=== PATIENT | male | born 1970 | race Caucasian/White ===

== ENCOUNTER 2019-01-12 05:02 | Emergency (ER) | payer BC, OTHER ==
[2019-01-12] MEDS ORDERED: Diltiazem IV push/loading dose 5 MG/ML 5 ML vial (25 mg) IV SLOW PU ONE (05:24)
--- NOTE | 2019-01-12 05:34 | ED ---
Palpitations / Dysrhythmia - HPI Summary HPI Summary: The patient is a 48 y/o M presenting to [facility] with a chief complaint of sudden onset fast heart palpitations starting at 0230 this morning. He reports that he went to bed at 0030 but suddenly woke up two hours later with palpitations. He thought that he was having a panic attack so he tried to remain calm and control his breathing for an hour, but the tachycardia continued. He denies CP and SOB. He hasn't had theses symptoms before. Hx of HTN. No substance use, former smoker, moderate EtOH. - History of Current Complaint Chief Complaint: EDDysrhythmPalp Time Seen by Provider: 01/12/19 05:19 Hx Obtained From: Patient Onset/Duration: Sudden Onset, Lasting Hours, Still Present Severity Initially: Mild Severity Currently: Moderate Character: Fast Aggravating: Nothing Alleviating: Nothing - tried to control breathing to no relief - Allergy/Home Medications Allergies/Adverse Reactions: Allergies Allergy/AdvReac Type Severity Reaction Status Date / Time MS Penicillins [Penicillins] Allergy Severe Hives Verified 02/02/13 10:59 Home Medications: Home Medications Benazepril/Hydrochlorothiazide [Benazepril HCl/Hydrochlor 20-12.5 mg-] 0.5 tab PO DAILY 01/12/19 [History Confirmed 01/12/19] PMH/Surg Hx/FS Hx/Imm Hx Endocrine/Hematology History: Denies: Hx Diabetes, Hx Thyroid Disease Cardiovascular History: Reports: Hx Hypertension - Borderline Respiratory History: Denies: Hx Asthma, Hx Chronic Obstructive Pulmonary Disease (COPD) GI History: Denies: Hx Ulcer - Surgical History Surgery Procedure, Year, and Place: tonsils Infectious Disease History: No Infectious Disease History: Reports: History Other Infectious Disease - Lyme Disease Denies: Hx Hepatitis, Hx Human Immunodeficiency Virus (HIV), Traveled Outside the [place] in Last 30 Days - Family History Known Family History: Positive: Hypertension - Social History Alcohol Use: Daily Alcohol Amount: 1-3 beers Substance Use Type: Reports: None Hx Tobacco Use: Yes Smoking Status (MU): Former Smoker Type: Cigarettes Amount Used/How Often: 1/2 -1 PPD Length of Time of Smoking/Using Tobacco: 20 years Have You Smoked in the Last Year: Yes Review of Systems Positive: Palpitations. Negative: Chest Pain Negative: Shortness Of Breath All Other Systems Reviewed And Are Negative: Yes Physical Exam - Summary Physical Exam Summary: Appearance: Well appearing, no pain distress Skin: warm, dry, reflects adequate perfusion Head/face: normal Eyes: EOMI, TISHA ENT: normal Neck: supple, non-tender Respiratory: CTA, breath sounds present Cardiovascular: fast irregularly irregular heart rate, pulses symmetrical Abdomen: non-tender, soft Musculoskeletal: normal, strength/ROM intact Neuro: normal, sensory motor intact, A&Ox3 Triage Information Reviewed: Yes Vital Signs On Initial Exam: Initial Vitals Temp Pulse Resp BP Pulse Ox 97.7 F 96 18 154/116 98 01/12/19 05:08 01/12/19 05:08 01/12/19 05:08 01/12/19 05:08 01/12/19 05:08 Vital Signs Reviewed: Yes Diagnostics - Vital Signs Vital Signs Temp Pulse Resp BP Pulse Ox 01/12/19 05:21 87 11 146/102 97 01/12/19 05:20 112 7 99 01/12/19 05:08 97.7 F 96 18 154/116 98 - Laboratory Result Diagrams: 01/12/19 05:28 01/12/19 05:28 Lab Statement: Any lab studies that have been ordered have been reviewed, and results considered in the medical decision making process. - Radiology CXR Radiology Interpretation Completed By: Radiologist Summary of Radiographic Findings: No acute process. ED physician has reviewed this report. - EKG 0512 Cardiac Rate: NL - 125 BPM EKG Rhythm: Atrial Fibrillation Summary of EKG Findings: No ST elevations Course/Dx - Course Assessment/Plan: The patient is a 48 y/o M presenting to [facility] with a chief complaint of sudden onset fast heart palpitations starting at 0230 this morning. He denies SOB and CP. Upon physical exam, the patient exhibits fast irregularly irregular heart rate. In the ED course, the patient was administered potassium chloride and Diltiazem. Blood work obtained. EKG reveals A fib at 125 BPM. CXR reveals no acute process. He is diagnosed with afib with ventricular rate. The patient is a sign-out to MARYANN Horne, from Dr. Marco A Sousa MD, at change of shift at 0700 pending further workup and disposition. - Diagnoses Provider Diagnoses: Atrial fibrillation with normal ventricular rate Discharge - Sign-Out/Discharge Documenting (check all that apply): Sign-Out Patient Signing out patient TO: China Morales - Patient is a sign-out to MARYANN Horne, pending further workup and disposition. Patient Received Moderate/Deep Sedation with Procedure: No - Discharge Plan Referrals: Anival Sheikh MD [Primary Care Provider] - - Attestation Statements Document Initiated by Scribe: Yes Documenting Scribe: Tracie Joyner Provider For Whom Scribe is Documenting (Include Credential): Dr. Marco A Sousa MD Scribe Attestation: Tracie Bennett scribed for Dr. Marco A Sousa MD on 01/12/19 at 0656. Status of Scribe Document: Ready
[2019-01-12 05:50] LABS: ABS Eosinophils 0.1 10^3/ul (0-0.6); ABS Lymphocytes 1.6 10^3/ul (1.0-4.8); ABS Monocytes 0.6 10^3/ul (0-0.8); ABS Neutrophils 3.6 10^3/ul (1.5-7.7); Eosinophil % 2.2 %; Hematocrit 43 % (42-52); Hemoglobin 15.2 g/dL (14.0-18.0); Lymphocyte % 27.2 %; Mean Corpuscular HGB Conc 36 g/dL (31-36); Mean Corpuscular Hemoglobin 31 pg (27-31); Mean Corpuscular Volume 87 fL (80-94); Mean Platelet Volume 6.7 fL (7.4-10.4); Nucleated Red Blood Cells % 0.2; Platelet Count 306 10^3/uL (150-450); Red Blood Count 4.88 10^6 /uL (4.18-5.48); Red Cell Distribution Width 13 % (10.5-15)
[2019-01-12 05:55] LABS: Activated Partial Thrombo Time 32.2 seconds (26.0-38.0); INR 0.93 (0.82-1.09)
[2019-01-12 06:14] LABS: Albumin 4.4 g/dL (3.2-5.2); Albumin/Globulin Ratio 1.9 (1-3); BUN/Creatinine Ratio 13.1 (8-20); Calcium 9.8 mg/dL (8.6-10.3); EGFR Non-African American 58.7 (>60); Globulin 2.3 g/dL (2-4); Potassium 3.5 mmol/L (3.5-5.0); Total Bilirubin 2.3 mg/dL (0.2-1.0); Total Protein 6.7 g/dL (6.4-8.9)
[2019-01-12] MEDS ORDERED: Potassium Chlor TAB* 20 MEQ TAB.ER PO ONE (06:19)
[2019-01-12 06:23] LABS: Magnesium 2.1 mg/dL (1.9-2.7)
[2019-01-12 10:00] LABS: HDL Cholesterol 56.6 mg/dL
--- NOTE | 2019-01-12 11:28 | ED ---
Progress - Progress Note Progress Note: Receiving sign out from Dr. Sousa - pt dx'd w/ a. fib, HR 120-140's - sx and rate improved with cardizem 20mg IV push. HPI as follows: The patient is a 48 y/o M presenting to [facility] with a chief complaint of sudden onset fast heart palpitations starting at 0230 this morning. He reports that he went to bed at 0030 but suddenly woke up two hours later with palpitations. He thought that he was having a panic attack so he tried to remain calm and control his breathing for an hour, but the tachycardia continued. Also reports this felt different than a panic attack (ie. didn't have finger tingling, etc). He denies CP, SOB, dizziness, fatigue - in fact he feels like he should be tired from lack of sleep however feels quite alert. He hasn't had theses symptoms before. Hx of HTN - well controlled on benazapril/HCTZ. Admits to a lot of stress past 3 months. Self-employed and works 6 days a week. Financial stress H/o anxiety depression - was on SSRI in past - d/c'd through PCP a while ago ( no abrupt withdrawal) Denies SI/HI ETOH use - h/o abuse 8-10/day (beer, shots, etc). Quit drinking in Jul 2018 but started back up 1 month ago however reports he limits himself to 1-2 beers a night. Admits last night he had 4 beers which is more than usual. Former smoker Denies illicit drug use Does consume 1-3 coffees a day "I eat a lot of junk food" No cardiovascular exercise PE GEN: A&O x 3, lying comfortably on stretcher HEENT: mucosa moist CARDIAC: S1/S2, IRR PULM: breathing easily INTEG: warm, dry - no sweating EXTREM: no edema, well perfused AB: soft, NT NEURO: CN II-XII grossly intact, no tremor DURAN: moving without difficulty, strength intact and equal B/L PSYCH: appears calm and cooperative, clear thoughts, good insight; Denies SI, hallucinations ECG: #1 a. fib, HR 125 #2 a. fib, HR 70 #3 NSR, HR 60 Assessment: #1. suspect new onset A fib - Dr. Hendricks to see the pt who converted and rate now in 60's. Feels better. #2. Anxiety/depression -no SI/HI #3. ETOH abuse PLAN: *1. Discussed changing meds with Dr. Hendricks and pt - stop benazapril/HCTZ and start cardizem plus potassium until follow-up with PCP this week. STart ASA 81mg. Pt will also call Dr. Hendricks's office Monday to schedule echocardiogram. If worse in meantime, return to ED. Pt agrees w plan. *2. Discussed lifestyle changes (ie. ETOHcaffeine reduction/ cessation, better eating, stress reduction, etc) - pt is open minded and willing to address changes - h/o ETOH cessation on his own in the past w/ success. *Refrained from psych eval today however pt aware of acute services if needed *Also discussed may be beneficial to restart SSRI, counseling - will discuss w/ PCP this week *3. Conversation regarding ETOH withdrawal - WAM score 0 today and he has no concern of abrupt withdrawal as he stopped in the past w/o sx and doesn't feel any withdrawal sx over the past 12 hours. Advised to return if any danger s/sx present - pt agrees w/ plan Dispo: home Condition: stable Course/Dx - Diagnoses Provider Diagnoses: Atrial fibrillation with normal ventricular rate Discharge - Sign-Out/Discharge Documenting (check all that apply): Patient Departure, Receiving Sign-Out Signing out patient TO: Marco A Sousa Receiving patient FROM: Marco A Sousa Patient Received Moderate/Deep Sedation with Procedure: No - Discharge Plan Condition: Stable Disposition: HOME Prescriptions: dilTIAZem HCl [Cardizem LA] 120 mg PO DAILY #14 tab.er.24h Potassium Chlor TAB* [Potassium Chlor TAB 20 MEQ*] 20 meq PO DAILY #14 tab.er Patient Education Materials: A-fib (Atrial Fibrillation) (ED), Stress (ED), Alcohol Withdrawal (ED) Referrals: [facility] [Outside] Additional Instructions: For atrial fibrillation: *Stop benazapril/HCTZ *Start cardizem, potassium and aspirin 81mg daily until follow-up with PCP this week. Call Monday to schedule appointment. Contact information for [facility] here. *Call Dr. Hendricks's office Monday to schedule echocardiogram. For stress: *Discussed lifestyle changes (ie. avoiding alcohol, reducing caffeine, stay hydrated, better eating, stress reduction, etc) - see handout for additional information and discuss wit PCP at follow-up *Discussed it may be beneficial to restart SSRI (ie. lexapro, etc) - discuss w/ PCP this week *If you feel like harming yourself or others, call 911 and/or return to the ED You do not appear to have signs of alcohol withdrawal here today however should you develop symptoms, return to ED. See handouts for symptoms. - Billing Disposition and Condition Condition: STABLE Disposition: Home
[2019-01-12 12:21] VITALS: BP 123/79
--- NOTE | 2019-01-12 14:05 | CONS ---
CC: Iker Hendricks MD; [facility] Internal Medicine ED CONSULTATION NOTE: DATE OF CONSULT: 01/12/19 CONSULTING PROVIDER: MARYANN Horne. REASON FOR CONSULTATION: AFib. HISTORY OF PRESENT ILLNESS: This is a very pleasant 48-year-old gentleman with a history of hypertension, depression, and alcohol abuse. He was in his usual state of health, drinking 2 to 3 beers at night over the last month until last night when he went out and had 4 beers. He said he went to bed at around 12:30 p.m. He woke at 2:20 a.m., feeling that his heart was fluttering, going fast, irregular, and felt uncomfortable. He thought it was a panic attack; however, in the past, his panic attacks had been associated with an increased heart rate that is regular. Denied syncope or near syncope. No chest discomfort. Because of the symptoms, he decided to wait for an hour or 2 and do some breathing exercises, but his symptoms persisted and when he lied down, he was uncomfortable with irregular heartbeat. Because of his symptoms, he came to the emergency room. He was found to be in AFib with a rapid ventricular response. He was given IV diltiazem with some slowing of his heart rate and he spontaneously converted at about 8 o'clock. He started to fall asleep about 8 o 'clock and then was aware of a sensation of converting to his normal rhythm, which was back to normal. He denies syncope or near syncope. He has no chest pain. He says last April, he developed some discomfort in his left shoulder and left arm, which was positional and not associated with any other symptoms. He denies any previous heart issues or rheumatic fever. He does have a history of a murmur as a child. Of note, he said that he has had problems with alcohol and tobacco use and depression. He said he has been on SSRIs in the past including Lexapro. He said that he was drinking up to 9 beers a day in the past and felt lightheaded and dizzy and felt better with stopping it. He blames some of his symptoms on the Lexapro. He said he quit smoking 5 months ago after smoking a pack per day for 25 years. He quit alcohol 7 months ago, but restarted it 1 month ago and has gradually built up to 1 to 3 beers per night and had 4 beers last night for the first time. He has a history of depression, anxiety, and hypertension. He denies diabetes. He has a history of tobacco use. He denies asthma or emphysema. He was drinking 3 cups of coffee a day until he stopped smoking, then he felt too anxious with the caffeine and is down to 1 cup a day. Of note, he weaned himself off his citalopram back in May and June of last year. He does report he is under a great deal of stress. 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 He says he is under financial pressure. He does have a girlfriend. He does not spend so much time with his child as he would like. He does not exercise regularly, but he does all physical labor at work. PSH: He denies any surgeries. PMH HTN, Depresion, Anxiety, Panic disorder, tobacco use until recently, alcohol abuse. MEDICATIONS: Include benazepril/hydrochlorothiazide 20/12.5 half a tablet daily. As an inpatient: 1. IV diltiazem 20mg. 2. Potassium 20 mEq. ALLERGIES: I PENICILLIN. FAMILY HISTORY: Includes a father who of colon cancer at 70, mother is 73 and alive. He has no siblings. SOCIAL HISTORY: He is and has 1 child. 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 REVIEW OF SYSTEMS: Review of systems x10 was negative, except as above. He denied homicidal or suicidal ideation. He does state he is unhappy with the way his life is going. PHYSICAL EXAMINATION: He is a well-developed, well-nourished gentleman, in no apparent distress. Blood pressure 134/85, pulse 62 and regular. No significant JVD. Carotids are 2+ without bruits. No cervical adenopathy. No thyromegaly. Atraumatic, normocephalic. Cardiac Exam: S1, S2 with a soft 1/6 to 2/6 holosystolic murmur heard at the left lower sternal border, which seemed to increase with inspiration. Chest was clear. No CVAT. Abdomen: Bowel sounds present, nontender. Femoral pulses are intact with bruits. Distal pulses intact with no edema. Motor strength 5/5 bilaterally. Deep tendon reflexes 2/4. Alert and oriented x3. DIAGNOSTIC STUDIES/LAB DATA: Labs include a fairly unremarkable CBC. Sodium 139, potassium 3.5, BUN is 17, creatinine of 1.3; it was 1.2 in February 2017. TSH was normal. BNP was normal at 37. Troponin was 0. His EKG from 6:45 revealed AFib with PVC, counterclockwise rotation, and controlled ventricular response. EKG from 9:03 revealed sinus rhythm at 60 with counterclockwise rotation, no acute changes. His EKG from 01/12/19 at 5: 12 revealed AFib with a rapid ventricular response, counterclockwise rotation, [address] depressions inferiorly and anteriorly. IMPRESSION: My impression is that Mr. Moore presents with his first diagnosed presentation of atrial fibrillation and is converted after rate control. Confounding factors could be alcohol abuse, anxiety, and depression. I did discuss this at length with the patient and with MARYANN Horne. For the time being, I recommend the followin. I suggested that he avoid caffeine and alcohol, which could increase his risk for recurrent arrhythmias. 2. I suggested we supplement his potassium to try to maintain it over 4. 3. I would suggest switching from benazepril to diltiazem 120 mg CD to try to control his blood pressure and perhaps afford some rate control if he has recurrent atrial fibrillation. 4. We will have to watch for bradycardia and hypertension. 5. I discussed with him my concerns about his alcohol use and potential for morbidity, mortality, and the potential for alcohol withdrawal if he stops abruptly. We will discuss possible detox with MARYANN Horne. 6. I strongly suggested a more constructive approach to his lifestyle including improving his diet, decreasing alcohol and caffeine, and treating his depression and anxiety. He is somewhat reluctant to restart Lexapro, but I suggest he followup with his primary care doctor about options. 7. I also suggest that he gently increase regular amount of exercise and try to help improve his physical and emotional well-being once his cardiac workup is completed. 8. He is to have an echocardiogram as an outpatient to evaluate his murmur we will consider an exercise test at some point given his nonspecific EKG changes. 9. I would check a lipid profile. 10. He understands the potential for recurrent atrial fibrillation despite improved lifestyle and we discussed options for treatment including antiarrhythmics and/or referral for ablation. 11. His CHADS2-VASc score is 1. He understands the risk for cardioembolic events given his relatively low score, his alcohol use, and his profession, which increases the risk of trauma/bleeding, I suggested aspirin 81 mg for now. He usually follows with Dr. Sheikh, but he is planning on having a new provider since Dr. Sheikh has less primary care practice. TIME SPENT: Over half of the 90 minutes spent with the patient, was in discussion, [id number] and coordination of care. [id number]/[facility] #: [id number] DANK
== END 2019-01-12 12:19 | disposition home or self-care (01) ==
LOC: ED 05:02
DX: I48.91 Unspecified atrial fibrillation (principal); I10 Essential (primary) hypertension; Z88.0 Allergy status to penicillin; Z87.891 Personal history of nicotine dependence
CPT/HCPCS: 36415; 71045; 80053; 80061; 82550; 83605; 83735; 83880; 84443; 84484; 85025; 85610; 85730; 93005; 96374; 99283; A9270-GY

== ENCOUNTER 2019-01-16 00:11 | Emergency (ER) | payer BC ==
--- NOTE | 2019-01-16 00:51 | ED ---
Palpitations / Dysrhythmia - HPI Summary HPI Summary: The patient is a 48 year old M presenting to [facility] with a chief complaint of dysrhythmia. The pt reports that he felt irregular heart palpitations after eating dinner and watching tv. The pt became worried as it felt the same as an episode he had on Monday01/11/19. He reports that he was SOB due to anxiety from the palpitations but denies any chest pain. He states that the feeling has decreased since his arrival to the ED and that his chest feels tight. He took ASA prior to arrival at the ED. He reports starting a new medication for HTN since 01/11/19. The pt was diagnosed with AFIB on 01/11/19. The pt's blood pressure was 155/99 and his heart rate was 62 BPM. - History of Current Complaint Chief Complaint: EDDysrhythmPalp Time Seen by Provider: 01/16/19 00:42 Hx Obtained From: Patient Onset/Duration: Sudden Onset - watching TV after dinner tonight 01/15/19., Lasting Hours Timing: Constant Severity Initially: Severe Severity Currently: None Character: Fast, Irregular Aggravating: Nothing Alleviating: Rest Associated Signs & Symptoms: Chest Pain - Negative, Shortness of Breath Related History: Similar Episode/Dx as - 01/11/19, diagnosed with AFIB on that date. - Allergy/Home Medications Allergies/Adverse Reactions: Allergies Allergy/AdvReac Type Severity Reaction Status Date / Time MS Penicillins [Penicillins] Allergy Severe Hives Verified 01/16/19 00:14 PMH/Surg Hx/FS Hx/Imm Hx Previously Healthy: No Endocrine/Hematology History: Denies: Hx Diabetes, Hx Thyroid Disease Cardiovascular History: Reports: Hx Hypertension - Borderline Respiratory History: Denies: Hx Asthma, Hx Chronic Obstructive Pulmonary Disease (COPD) GI History: Denies: Hx Ulcer - Surgical History Surgery Procedure, Year, and Place: tonsils Infectious Disease History: No Infectious Disease History: Reports: History Other Infectious Disease - Lyme Disease Denies: Hx Hepatitis, Hx Human Immunodeficiency Virus (HIV), Traveled Outside the [place] in Last 30 Days - Family History Known Family History: Positive: Hypertension - Social History Alcohol Use: Daily Alcohol Amount: 1-3 beers Substance Use Type: Reports: None Hx Tobacco Use: Yes Smoking Status (MU): Former Smoker Type: Cigarettes Amount Used/How Often: 1/2 -1 PPD Length of Time of Smoking/Using Tobacco: 20 years Have You Smoked in the Last Year: Yes Review of Systems Positive: Palpitations. Negative: Chest Pain Positive: Shortness Of Breath All Other Systems Reviewed And Are Negative: Yes Physical Exam - Summary Physical Exam Summary: Appearance: Well-appearing, Well-nourished, lying in bed comfortably Skin: Warm, dry, no obvious rash Eyes: sclera anicteric, no conjunctival pallor ENT: mucous membranes moist, pharynx appears normal Neck: Supple, nontender Respiratory: Clear to auscultation, no signs of respiratory distress Cardiovascular: Normal S1, S2. No murmurs. Normal distal pulses in tibial and radial bilaterally. Abdomen: Soft, nontender, normal active bowel sounds present Musculoskeletal: Normal, Strength/ROM Intact Neurological: A&Ox3, awake and alert, mentation is normal, speech is fluent and appropriate Psychiatric: affect is normal, does not appear anxious or depressed Triage Information Reviewed: Yes Vital Signs On Initial Exam: Initial Vitals Temp Pulse Resp BP Pulse Ox 99.9 F 83 18 216/100 100 01/16/19 00:13 01/16/19 00:13 01/16/19 00:13 01/16/19 00:13 01/16/19 00:13 Vital Signs Reviewed: Yes Diagnostics - Vital Signs Vital Signs Temp Pulse Resp BP Pulse Ox 01/16/19 00:13 99.9 F 83 18 216/100 100 - Laboratory Lab Statement: Any lab studies that have been ordered have been reviewed, and results considered in the medical decision making process. - EKG 0108 Cardiac Rate: NL EKG Rhythm: Sinus Rhythm ST Segment: Normal Ectopy: None Summary of EKG Findings: NSR at 77 BPM, P waves, QRS complex, and T waves are within normal limits, T waves and intervals are normal, no ischemic changes. This is a normal EKG. Course/Dx - Course Course Of Treatment: The patient is a 48 year old M presenting to [facility] with a chief complaint of dysrhythmia. The pt reports that he felt irregular heart palpitations after eating dinner and watching tv. The pt became worried as it felt the same as an episode he had on Monday01/11/19. His EKG shows NSR at 77 BPM, P waves, QRS complex, and T waves are within normal limits, T waves and intervals are normal, no ischemic changes. The pt was very anxious about his heart and all the complications of AFIB and how it can manifest/risk factors were discussed. Pt is being discharged with a new Dx of heart palpitations and anxiety. The pt was informed to continue his plan of care and to find ways to cope with his anxiety including possible medication. - Diagnoses Provider Diagnoses: Heart palpitations, Anxiety Discharge - Sign-Out/Discharge Documenting (check all that apply): Patient Departure - discharge Patient Received Moderate/Deep Sedation with Procedure: No - Discharge Plan Condition: Good Disposition: HOME Patient Education Materials: A-fib (Atrial Fibrillation) (ED), Heart Palpitations (ED), Anxiety (ED) Referrals: Anival Sheikh MD [Primary Care Provider] - Additional Instructions: Your manager recruiting will help you navigate the ins and outs of atrial fibrillation but it would be worth your while to talk to your PCP about your anxiety as there are good treatments for that as well. - Billing Disposition and Condition Condition: GOOD Disposition: Home - Attestation Statements Document Initiated by Soila: Yes Documenting Scribe: Federico Sands Provider For Whom Soila is Documenting (Include Credential): Aaron Martino MD Scribe Attestation: I, Federico Sands, terryed for Aaron Martino MD on 01/16/19 at 0514. Scribe Documentation Reviewed: Yes Provider Attestation: The documentation as recorded by the Federico leon accurately reflects the service I personally performed and the decisions made by me, Aaron Martino MD Status of Scribe Document: Viewed
[2019-01-16 01:26] VITALS: BP 124/75
== END 2019-01-16 01:26 | disposition home or self-care (01) ==
LOC: ED 00:11
DX: R00.2 Palpitations (principal); F41.9 Anxiety disorder, unspecified; R06.02 Shortness of breath; I10 Essential (primary) hypertension; Z88.0 Allergy status to penicillin; Z87.891 Personal history of nicotine dependence
CPT/HCPCS: 93005; 99282

== ENCOUNTER 2019-06-06 15:08 | Emergency (ER) | payer BC, MEDICAID, OTHER ==
--- OUTSIDE RECORDS SUMMARY | 2019-06-06 15:36 | XMS REPORT | Continuity of Care Document ---
:1970 External Reference #:[id number] Author Name Karl Staples, OD Address [address] [place] [address] Care Team Providers Name Role Phone Aguilar POPE, Anival Internal Care Team Information Sheetmetal Trades Worker [phone] Medicine Problems Active Problems Provider Date Hypermetropia Karl Burroughs O.D. Onset: 03/14/2014 Visual disturbance Karl Burroughs O.D. Onset: 03/14/2014 Blepharitis Karl Burroughs O.D. Onset: 03/14/2014 Social History Type Date Description Comments Sex Unknown ETOH Use Occasionally consumes alcohol Tobacco Use Start: Unknown End: Unknown Patient is a former smoker Smoking Status Reviewed: 04/19/19 Patient is a former smoker Allergies, Adverse Reactions, Alerts Active Allergies Reaction Severity Comments Date Penicillins 03/14/2014 Seasonal 03/14/2014 Medications Active Medications SIG Qnty Indications Ordering Date Provider Lorazepam Unknown 0.5mg Tablets Hydrochlorothiazide Take 1 Tablet Unknown 25mg Tablets By Mouth Every Day Cartia XT Mauser, 120mg Caps ER 24HR MD Iker Immunizations Description No Information Available Vital Signs Date Vital Result Comment 04/19/2019 2:13pm Intraocular Pressure Right Eye 15 mmHg Intraocular Pressure Left Eye 15 mmHg 03/14/2014 2:00pm Intraocular Pressure Right Eye 14 mmHg Intraocular Pressure Left Eye 14 mmHg Results Description No Information Available Procedures Date Code Description Status 04/19/2019 40337 Refraction Completed 04/19/2019 59156 Eye Exam New Comprehensive Completed Medical Devices Description No Information Available Encounters Description No Information Available Assessments Date Code Description Provider 04/19/2019 H52.03 Hypermetropia, bilateral Karl Staples, OD 04/19/2019 H04.123 Dry eye syndrome of bilateral lacrimal glands Karl Begumon, OD Plan of Treatment 04/19/2019 - Karl Begumon, ODH52.03 Hypermetropia, obyuaezjdL30.123 Dry eye syndrome of bilateral lacrimal glandsFollow up:1-2 years full, sooner PRN Functional Status Description No Information Available Mental Status Description No Information Available Referrals Description No Information Available
--- OUTSIDE RECORDS SUMMARY | 2019-06-06 15:36 | XMS REPORT | Continuity of Care Document ---
:1970 External Reference #:[id number] Author Name Rosa Yadav NP (transmitted by agent of provider Laney Ware) Address [address] [place] [address] Care Team Providers Name Role Phone Denita Bello, PhD. - Clinical Care Team Information Chemical Plant Operator Lissa Gillis M.D. - Family Medicine Care Team Information Chemical Plant Operator Problems Active Problems Provider Date Benign essential hypertension Breann Broussard, N.P. Onset: 02/05/2014 Mixed hyperlipidemia Breann Broussard, N.P. Onset: 02/05/2014 Alcohol abuse Breann Broussard, N.P. Onset: 02/05/2014 Tobacco user Breann Broussard, N.P. Onset: 02/05/2014 Moderate recurrent major depression Anival Sheikh M.D.,FACP Onset: 11/16 Family history of malignant neoplasm Anival Sheikh M.D.,FACP Onset: of gastrointestinal tract Social History Type Date Description Comments Sex Unknown Tobacco Use Start: Unknown End: Former Cigarette Smoker Unknown 1 Pack Daily ETOH Use Has consumed alcohol in Last drink December 2018 the past Recreational Drug Use Denies Drug Use Tobacco Use Start: Unknown End: Patient is a former Unknown smoker Tobacco Use Start: Unknown quit 08-06-18 Smoking Status Reviewed: 04/09/19 quit 08-06-18 Allergies, Adverse Reactions, Alerts Active Allergies Reaction Severity Comments Date Penicillin severe rash Severe 01/08/2014 Wellbutrin lip swelling 11/16/2016 Medications Active Medications SIG Qnty Indications Ordering Date Provider Hydrochlorothiazide 1 by mouth 90tabs I10 Rosa Yadav, 04/09/2019 25mg Tablets every day [employer] Diltiazem HCL ER 1 by mouth 90caps Iker Newberry 03/19/2019 120mg Caps ER every day Renée Hendricks 12HR Lorazepam 1 tablet every 30tabs F41.1 Alison Velez, 01/17/2019 0.5mg Tablets 12 hours as M.DRiana needed for anxiety History Medications Diltiazem HCL ER 1 by mouth every 30caps I10 Iker Newberry 02/05/2019 - Coated Beads day Renée Hendricks 03/19/2019 180mg Caps ER 24HR Diltiazem HCL 1 by mouth every 30tabs Lissa Gillis MD 01/29/2019 - 120mg day 02/05/2019 Tablets Diltiazem HCL 1 by mouth every 3tabs I10 José Miguel Daniels, 01/17/2019 - 120mg day M.DRiana 01/29/2019 Tablets Sertraline HCL 1-2 daily as 45tabs F41.1 Lissa Gillis MD 01/17/2019 - 25mg directed for slow 03/08/2019 Tablets taper Immunizations CPT Code Status Date Vaccine Lot # [id number] Given 05/23/2016 Influ Virus Vaccine, Quadrivalent, Split Virus, [place] [id number] [id number] Given 06/16/2015 Influenza Virus Vaccine, Quadrivalent, Split, [id number] Preservative Free Vital Signs Date Vital Result Comment 04/09/2019 3:21pm Height 73.5 inches 6'1.50" Weight 241.00 lb Heart Rate 60 /min BP Systolic 128 mmHg Rue reg BP Diastolic 90 mmHg Rue reg BP Systolic Sitting 132 mmHg Rue reg cuff BP Diastolic Sitting 100 mmHg Rue reg cuff BP Systolic Standing 148 mmHg Rue reg cuff BP Diastolic Standing 100 mmHg Rue reg cuff Respiratory Rate 13 /min BMI (Body Mass Index) 31.4 kg/m2 03/08/2019 3:10pm Height 73.5 inches 6'1.50" Weight 229.00 lb Heart Rate 60 /min BP Systolic Sitting 115 mmHg BP Diastolic Sitting 77 mmHg BMI (Body Mass Index) 29.8 kg/m2 Results Test Date Facility Test Result H/L Range Note Lipid Panel - 04/09/2019 [facility] Creatine <pending> [facility] [address] Kinase(CK) [place] [address] [phone] Basic Metabolic 04/03/2019 [facility] Sodium 141 mmol/L Normal 135-[address] [place] [address] [phone] Potassium 4.3 mmol/L Normal 3.5-5.0 Chloride 104 mmol/L Normal 101-111 Co2 Carbon Dioxide 30 mmol/L Normal 22-32 Anion Gap 7 mmol/L Normal 2-11 Glucose 100 mg/dL Normal 70-100 Blood Urea Nitrogen 13 mg/dL Normal 6-24 Creatinine 1.17 mg/dL Normal 0.67-1.17 BUN/Creatinine Ratio 11.1 Normal 8-20 Calcium 9.9 mg/dL Normal 8.6-10.3 Egfr Non- 66.3 >60 Egfr 80.2 >60 1 Urinalysis Profile 04/03/2019 [facility] Urine Color [address] [place] [address] [phone] Urine Appearance Turbid Urine Specific [place] 1.030 Normal 1.010-1.030 Urine pH 6.0 Normal 5-9 Urine Urobilinogen Negative Negative Urine Ketones Trace Abnormal Negative Urine Protein Negative Negative Urine Leukocytes Negative Negative Urine Blood Negative Negative Urine Nitrite Negative Negative Urine Bilirubin Negative Negative Urine Glucose Negative Negative 1 Because ethnic data is not always readily available, this report includes an eGFR for both -Americans and non- Americans. The National Kidney Disease Education Program (NKDEP) does not endorse the use of the MDRD equation for patients that are not between the ages of 18 and 70, are , have extremes of body size, muscle mass, or nutritional status, or are non- or non-. According to the National Kidney Foundation, irrespective of diagnosis, the stage of the disease is based on the level of kidney function: Stage Description GFR(mL/min/1.73 m(2)) 1 Kidney damage with normal or decreased GFR 90 2 Kidney damage with mild decrease in GFR 60-89 3 Moderate decrease in GFR 30-59 4 Severe decrease in GFR 15-29 5 Kidney failure <15 (or dialysis) Procedures Date Code Description Status 03/19/2019 10378 Holter Monitor Review (24 hr)dr lloyd & kaylap only Completed 03/07/2019 02801 ECG Monitor/Recording W/Visual Superimposition Scanning Completed 03/06/2019 81333 ECHO Transthoracic, Real-Time 2D With Doppler And Color Completed Flow 03/06/2019 88788 ECHO Transthoracic, Real-Time 2D With Doppler And Color Completed Flow 02/05/2019 39112 EKG Tracing & Interpretation Completed 01/12/2019 97832 EKG, Interpretation Only Completed Medical Devices Description No Information Available Encounters Type Date Location Provider Dx Diagnosis Office Visit 03/08/2019 [facility] Lissa Gillis MD F41.1 Generalized anxiety 3:00p Medicine - Ccmob disorder F33.1 Major depressive disorder, recurrent, moderate I10 Essential (primary) hypertension N18.9 Chronic kidney disease, unspecified Office Visit 02/28/2019 3:00p [facility] Rosa Yadav, I48.0 Paroxysmal atrial Of [facility] [employer] fibrillation I10 Essential (primary) hypertension F10.10 Alcohol abuse, uncomplicated N18.9 Chronic kidney disease, unspecified E78.5 Hyperlipidemia, unspecified Office Visit 02/05/2019 10:20a [facility] Iker Newberry F41.1 Ann Marie Hendricks M.D. anxiety disorder I10 Essential (primary) hypertension I48.0 Paroxysmal atrial fibrillation R00.2 Palpitations R01.1 Cardiac murmur, unspecified Office Visit 01/17/2019 11:00a [facility] Lissa Gillis F41.1 [facility] Essential (primary) hypertension I48.0 Paroxysmal atrial fibrillation Office Visit 01/12/2019 2:47p [facility] Iker Newberry I48.91 Unspecified atrial Cardiology Renée Hendricks fibrillation R94.31 Abnormal electrocardiogram [ECG] [EKG] F10.10 Alcohol abuse, uncomplicated F41.8 Other specified anxiety disorders I10 Essential (primary) hypertension Assessments Date Code Description Provider 04/09/2019 I48.0 Paroxysmal atrial fibrillation Rosa Yadav NP 04/09/2019 I77.810 Thoracic aortic ectasia Rosa Yadav NP 04/09/2019 I10 Essential (primary) hypertension Rosa Yadav NP 04/09/2019 E78.5 Hyperlipidemia, unspecified Rosa Yadav NP 03/19/2019 I48.0 Paroxysmal atrial fibrillation Iker Hendricks M.D. 03/08/2019 F41.1 Generalized anxiety disorder Lissa Gillis MD 03/08/2019 F33.1 Major depressive disorder, recurrent, Lissa Gillis MD moderate 03/08/2019 I10 Essential (primary) hypertension Lissa Gillis MD 03/08/2019 N18.9 Chronic kidney disease, unspecified Lissa Gillis MD 03/07/2019 I48.0 Paroxysmal atrial fibrillation Nurse Visit cc 03/06/2019 R01.1 Cardiac murmur, unspecified Iker Hendricks M.D. 03/06/2019 R01.1 Cardiac murmur, unspecified Traveling ECHO 1 02/28/2019 I48.0 Paroxysmal atrial fibrillation Rosa Thuman, [employer] 02/28/2019 I10 Essential (primary) hypertension Rosa Thuman, [employer] 02/28/2019 F10.10 Alcohol abuse, uncomplicated Rosa Thuman, [employer] 02/28/2019 N18.9 Chronic kidney disease, unspecified Rosa Thuman, [employer] 02/28/2019 E78.5 Hyperlipidemia, unspecified Rosa Thuman, [employer] 02/05/2019 F41.1 Generalized anxiety disorder Iker Hendricks M.D. 02/05/2019 I10 Essential (primary) hypertension Iker Hendricks M.D. 02/05/2019 I48.0 Paroxysmal atrial fibrillation Iker Hendricks M.D. 02/05/2019 R00.2 Palpitations Iker Hendricks M.D. 02/05/2019 R01.1 Heart murmur Iker Hendricsk M.D. 01/17/2019 F41.1 Generalized anxiety disorder Lissa Gillis MD 01/17/2019 I10 Essential (primary) hypertension Lissa Gillis MD 01/17/2019 I48.0 Paroxysmal atrial fibrillation Lissa Gillis MD 01/12/2019 R94.31 Abnormal electrocardiogram [ECG] [EKG] Iker Hendricks M.D. 01/12/2019 I48.91 Unspecified atrial fibrillation Iker Hendricks M.D. 01/12/2019 R94.31 Abnormal electrocardiogram [ECG] [EKG] Iker Hendricks M.D. 01/12/2019 F10.10 Alcohol abuse, uncomplicated Iker Hendricks M.D. 01/12/2019 F41.8 Other specified anxiety disorders Iker Hendricks M.D. 01/12/2019 I10 Essential (primary) hypertension Iker eHndricks M.D. Plan of Treatment Future Appointment(s):04/12/2019 12:15 pm - Az Guzman LCSW at [facility] Internal [facility] - [facility]07/23/2019 9:20 am - Iker Hendricks M.D. at [facility]04/09/2019 - Rosa Yadav, NPI48.0 Paroxysmal atrial fibrillationFollow up:Follow up with Dr. Hendricks in 5-6 months.I77.810 Thoracic aortic sisfhnhF63 Essential (primary) hypertensionNew Medication: Hydrochlorothiazide 25 mg - 1 by mouth every dayRecommendations:start taking HCTZ also known as .hydrochlorothiazide 25 mg by mouth daily. which is tablet by mouth daily. Take it in the morning. Get repeat non fasting labs in 10-14 days. Follow up with one of thenurses in our practice for repeat BP check in 2 weeks. If notice symptoms of low blood pressure such as dizziness, lightheadedness or excessive fatigue call me.E78.5 Hyperlipidemia, unspecified Functional Status Description No Information Available Mental Status Description No Information Available Referrals Refer to Dr Reason for Referral Status Appt Date Az Guzman LCSW pt with lifelong anxiety, recently worsened. Scheduled 01/25 just started on new meds [address] [place] [address] [phone] Iker Hendricks MD pt seen by Dr. Hendricks in ED with paroxysmal A. Sent Fib, need echo and follow up [address] [facility] [address] [place] [address] [phone]
--- NOTE | 2019-06-06 16:36 | ED ---
Psychiatric Complaint - HPI Summary HPI Summary: This patient is a 48-year-old male with a history of suicidal ideation, manic depressive disorder, severe mental health issues over his life (per patient.) Patient states he is currently not being followed by mental health, but would like to be. He is also requesting therapy. He states he was seen by his PCP, a nurse practitioner who started him on a medication, of which she does not recall several months ago. He states he had a severe reaction to this including a sense of impending doom, depression, suicidal thoughts and feeling of marcos. He was then tapered off that medication, and switched to Abilify. They started him at a 5 mg per day dose and the goal was to increase to 15 mg per day. He stated he felt manic on his 5 mg dose, but he like that feeling. After he increased the dose to 15 mg, he began to feel severe marcos, anxiety and feeling like he was "crawling out of my skin." He states he does not wish to harm himself, but feels like "I just wanted to ." However he follows that up with, he is unsure if he has suicidal ideation. He has no homicidal ideation. He does have a long history of self harm, nothing current. - History Of Current Complaint Chief Complaint: EDAllergicReaction Time Seen by Provider: 06/06/19 15:22 Hx Obtained From: Patient Onset/Duration: Sudden Onset Timing: Constant Severity Initially: Moderate Severity Currently: Moderate Character: Manic, Depressed, Anxious, Frustrated Aggravating Factor(s): Recent Stress, Therapy Non-compliance Alleviating Factor(s): Nothing - Risk Factor(s) Completed Suicide Risk Factors: Negative - Allergies/Home Medications Allergies/Adverse Reactions: Allergies Allergy/AdvReac Type Severity Reaction Status Date / Time Penicillins AdvReac Rash Verified 06/06/19 15:16 Home Medications: Home Medications ARIPiprazole TAB* [Abilify 15 MG TAB*] 15 mg PO DAILY 06/06/19 [History Confirmed 06/06/19] Chlorthalidone TAB* [Hygroton TAB*] 25 mg PO DAILY 06/06/19 [History Confirmed 06/06/19] dilTIAZem HCl [Diltiazem 24Hr ER] 120 mg PO DAILY 06/06/19 [History Confirmed ] PMH/Surg Hx/FS Hx/Imm Hx Previously Healthy: Yes Endocrine/Hematology History: Denies: Hx Diabetes, Hx Thyroid Disease Cardiovascular History: Reports: Hx Hypertension - Borderline Respiratory History: Denies: Hx Asthma, Hx Chronic Obstructive Pulmonary Disease (COPD) GI History: Denies: Hx Ulcer - Surgical History Surgery Procedure, Year, and Place: tonsils - Immunization History Hx Pertussis Vaccination: No Immunizations Up to Date: Yes Infectious Disease History: No Infectious Disease History: Reports: History Other Infectious Disease - Lyme Disease Denies: Hx Hepatitis, Hx Human Immunodeficiency Virus (HIV), Traveled Outside the [place] in Last 30 Days - Family History Known Family History: Positive: Hypertension - Social History Occupation: Unemployed Lives: With Family Alcohol Use: Daily Alcohol Amount: 1-3 beers Hx Substance Use: No Substance Use Type: Reports: None Hx Tobacco Use: Yes Smoking Status (MU): Former Smoker Type: Cigarettes Amount Used/How Often: 1/2 -1 PPD Length of Time of Smoking/Using Tobacco: 20 years Have You Smoked in the Last Year: Yes Review of Systems Negative: Fever, Chills, Fatigue, Skin Diaphoresis Negative: Palpitations, Chest Pain Negative: Shortness Of Breath, Cough Genitourinary: Negative Positive: no symptoms reported, see HPI Negative: Arthralgia, Myalgia Skin: Negative Neurological: Negative Positive: Anxious, Depressed All Other Systems Reviewed And Are Negative: Yes Physical Exam Triage Information Reviewed: Yes Vital Signs On Initial Exam: Initial Vitals Temp Pulse Resp BP Pulse Ox 98.3 F 68 16 164/93 99 06/06/19 15:12 06/06/19 15:12 06/06/19 15:12 06/06/19 15:12 06/06/19 15:12 Vital Signs Reviewed: Yes Appearance: Positive: Well-Appearing, Well-Nourished Skin: Positive: Warm, Skin Color Reflects Adequate Perfusion Head/Face: Positive: Normal Head/Face Inspection Eyes: Positive: EOMI, TISHA, Conjunctiva Clear Neck: Positive: Supple, No Lymphadenopathy Respiratory/Lung Sounds: Positive: Clear to Auscultation, Breath Sounds Present Cardiovascular: Positive: RRR, Pulses are Symmetrical in both Upper and Lower Extremities Neurological: Positive: Sensory/Motor Intact, Alert, Oriented to Person Place, Time, Speech Normal Psychiatric: Positive: Anxious, Depressed AVPU Assessment: Alert Procedures - Sedation Patient Received Moderate/Deep Sedation with Procedure: No Diagnostics - Vital Signs Vital Signs Temp Pulse Resp BP Pulse Ox 06/06/19 15:22 65 153/94 97 06/06/19 15:21 63 98 06/06/19 15:12 98.3 F 68 16 164/93 99 - Laboratory Lab Statement: Any lab studies that have been ordered have been reviewed, and results considered in the medical decision making process. Course/Dx - Course Course Of Treatment: After discussing with the patient at length regarding tx options, pt would like to have a MHE evaluation. He endorses marcos behaviors. I have explained I do not want to change his medicatoins without psychiatric consult. He is cleared for MHE. Pending evaluation, pt is signed out to Tyler Aguiar PA-C. - Differential Dx/Clinical Impression Differential Diagnosis/HQI/PQRI: Positive: Anxiety, Depression, Schizophrenia, Suicide Attempt, Suicidal Ideation, Suicidal Gesture Provider Diagnosis: Manic behavior Discharge ED - Sign-Out/Discharge Documenting (check all that apply): Sign-Out Patient Signing out patient TO: Tyler Aguiar - Discharge Plan Condition: Fair Referrals: Lissa Gillis MD [Primary Care Provider] - - Billing Disposition and Condition Condition: FAIR
[2019-06-06 18:26] VITALS: BP 137/95
== END 2019-06-06 18:20 | disposition home or self-care (01) ==
LOC: ED 15:08
DX: F30.9 Manic episode, unspecified (principal); I45.10 Unspecified right bundle-branch block; I10 Essential (primary) hypertension; Z88.0 Allergy status to penicillin; Z87.891 Personal history of nicotine dependence
CPT/HCPCS: 93005; 99284